=== PATIENT | male | born 1955 | race Two or more races ===

== ENCOUNTER 2023-04-08 08:27 | Outpatient (CLI) | payer OTHER ==
[~2023-04-08 08:27] MED LIST: CHLO25TA2 PO; CINN500C15 PO; LISI40TA13 PO; METF500T PO; PANT-47 PO; SIMV-343 PO; VITAMIN PACK PO
== END 2023-04-08 23:59 | disposition home or self-care (01) ==
LOC: RAD 08:27
PROVIDERS: ATTEND Family Medicine
DX: Z13.6 Encounter for screening for cardiovascular disorders (principal); M47.819 Spondylosis without myelopathy or radiculopathy, site unspecified; Z82.49 Family history of ischemic heart disease and other diseases of the circulatory system
CPT/HCPCS: 75572